=== PATIENT | female | born 1985 | race Caucasian/White ===

== ENCOUNTER → 2016-08-07 | Outpatient (CLI) | payer MEDICAID ==
[~2016-08-07] MED LIST: ACETAMINOPHEN325 MG PO; APNO TOP; DERMOPLAST SPRA56 GM TOP; LANSINOH7 GM TOP; MOTRIN800 MG PO; PERCOCET 5-3251 EACH PO; PRENATAL 1+1)(P1 TAB PO; SURFAK240 MG PO; TUCKS1 EACH TOP; TUMS200 MG PO
[2016-08-07 17:49] LABS: BASOPHIL % 0.4 %; EOSINOPHIL # 0.2 K/uL (0.0-0.5); EOSINOPHIL % 2.2 %; HEMATOCRIT 37.1 % (33.0-46.0); HEMOGLOBIN 12.3 g/dL (11.0-15.0); IMMATURE GRANULOCYTE % 0.2 %; LYMPHOCYTE # 1.3 K/uL (0.8-4.0); LYMPHOCYTE % 14.4 %; MCHC 33.2 gm/dL (32.0-36.5); MCV 87.5 fl (83.0-98.0); MONOCYTE # 0.5 K/uL (0.0-1.0); MONOCYTE % 5.6 %; MPV 11.5 fl (9.4-12.4); NEUTROPHIL # (ANC) 7.1 K/uL (1.8-7.8); NEUTROPHIL % 77.2 %; NRBC % 0 /100WBC (0-0.00); PLATELET COUNT 217 K/uL (150-450); RBC 4.24 M/uL (3.50-5.50); RDW-CV 13.8 % (11.9-14.6); WBC 9.2 K/uL (4.0-11.0)
[2016-08-07 18:07] LABS: BARBITURATE NEGATIVE (NEGATIVE); COCAINE NEGATIVE (NEGATIVE); OPIATES NEGATIVE (NEGATIVE)
[2016-08-07 18:08] LABS: AMPHETAMINE NEGATIVE (NEGATIVE)
== END | disposition disaster alternative care site (69) ==
LOC: LKCL 16:29
PROVIDERS: Family Medicine
DX: Z34.81 Encounter for supervision of other normal pregnancy, first trimester (principal)

== ENCOUNTER 2016-09-05 17:30 | Emergency (ER) | payer MEDICAID ==
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
== END 2016-09-05 18:19 | disposition disaster alternative care site (69) ==
LOC: GACC 17:30
PROC: 2W2MX4Z Dressing of Left Lower Extremity using Bandage (ICD-10-PCS; principal; 2016-09-05)
DX: O9A.212 Injury, poisoning and certain other consequences of external causes complicating pregnancy, second trimester (principal); T24.212A Burn of second degree of left thigh, initial encounter; Z3A.16 16 weeks gestation of pregnancy; Y27.2XXA Contact with hot fluids, undetermined intent, initial encounter
CPT/HCPCS: J2270